=== PATIENT | female | born 1985 | race African-American/Black ===

== ENCOUNTER 2018-03-26 16:35 | Emergency (ER) | payer OTHER ==
[~2018-03-26] VITALS: Ht 165.1 cm; Wt 84.1 kg
[2018-03-26] MEDS ORDERED: GLYCERIN/WITCH HAZEL LEAF 40 PADS JAR TP ONE (19:00)
[2018-03-26] MEDS ORDERED: ACETAMINOPHEN 500 MG TABLET PO ONE (19:00)
[2018-03-26] MEDS ORDERED: DOCUSATE SODIUM 100 MG CAPSULE PO ONE (19:00)
[2018-03-26 19:34] VITALS: BP 132/90
== END 2018-03-26 19:43 | disposition home or self-care (01) ==
LOC: EMS 16:36
DX: K62.89 Other specified diseases of anus and rectum (principal); K64.9 Unspecified hemorrhoids